=== PATIENT | male | born 2005 | race Two or more races ===

== ENCOUNTER 2024-11-24 01:47 | Inpatient (IN) | payer OTHER ==
[~2024-11-24] VITALS: Ht 160 cm; Wt 65.5 kg
[2024-11-24 03:37] LABS: BASOPHILS % (AUTO) 0.3 % (0.0-2.0); EOSINOPHILS % (AUTO) 0 % (1.0-6.0); HEMATOCRIT 38.1 % (41-53); LYMPHOCYTES # (AUTO) 1.3 K/uL (1.0-4.8); LYMPHOCYTES % (AUTO) 8.1 % (22.0-44.0); MEAN CORPUSCULAR HEMOGLOBIN 30.4 pg (26.0-34.0); MEAN CORPUSCULAR VOLUME 89 fL (80-100); MONOCYTES # (AUTO) 1.3 K/uL (0.1-1.0); MONOCYTES % (AUTO) 7.7 % (2.0-9.0); NEUTROPHILS # (AUTO) 13.9 K/uL (1.8-7.7); NEUTROPHILS % (AUTO) 83.9 % (40.0-70.0); PLATELET COUNT (AUTO) 195 K/uL (150-450); RED BLOOD CELL COUNT(AUTO) 4.27 MIL/uL (4.50-5.90); WHITE BLOOD COUNT (AUTO) 16.5 K/uL (4.5-11.0)
[2024-11-24 03:41] LABS: ANION GAP 9 mmol/L (8-16); CALCIUM, TOTAL 9.1 mg/dL (8.8-10.5); CARBON DIOXIDE 29 mmol/L (22-29); CHLORIDE 104 mmol/L (98-107); CREATININE 1.11 mg/dL (0.60-1.30); GLOMERULAR FILTR. RATE CALC > 60 mL/min (>60); GLUCOSE,RANDOM 87 mg/dL (70-110); POTASSIUM 3.9 mmol/L (3.5-5.1); SODIUM SERUM 142 mmol/L (136-145); UREA NITROGEN, BLOOD 16 mg/dL (7-18)
[2024-11-24 06:50] LABS: PH,URINE DRUG SCREEN 6.5 (5.0-8.0)
[2024-11-24 06:57] LABS: ALCOHOL, URINE DRUG SCREEN NEGATIVE (NEGATIVE); AMPHET/METH SCREEN,URINE POSITIVE (NEGATIVE); BARBITURATE SCREEN, URINE NEGATIVE (NEGATIVE); BENZODIAZEPINES SCREEN,URINE NEGATIVE (NEGATIVE); CANNABINOID SCREEN,URINE NEGATIVE (NEGATIVE); COCAINE SCREEN,URINE NEGATIVE (NEGATIVE); METHADONE SCREEN, URINE NEGATIVE (NEGATIVE); OPIATE SCREEN,URINE NEGATIVE (NEGATIVE); PHENCYCLIDINE SCREEN,URINE NEGATIVE (NEGATIVE)
[2024-11-24] MEDS ORDERED: ONDANSETRON HCL 4 MG/2 ML VIAL IVP PRN (07:15)
[2024-11-24] MEDS ORDERED: DIAZEPAM 2 MG TABLET PO PRN (07:15)
[2024-11-24] MEDS ORDERED: ACETAMINOPHEN 325 MG TABLET PO PRN (07:15)
[2024-11-24] MEDS: DOCUSATE SODIUM 100 MG CAPSULE PO SCH (08:13)
[2024-11-24] MEDS: HALOPERIDOL LACTATE 5 MG/ML VIAL IM ONE (10:49)
[2024-11-24] MEDS: LORazepam 2 MG/ML VIAL IM ONE (10:49)
[2024-11-24] MEDS: DiphenhydrAMINE HCL 50 MG/ML VIAL IM ONE (10:49)
[2024-11-24 12:29] VITALS: BP 105/65; PULSE 74; RESP 18; TEMP 97.7; O2SAT 99
[2024-11-24] MEDS ORDERED: LORazepam 2 MG TABLET PO PRN (15:45)
[2024-11-24] MEDS ORDERED: HALOPERIDOL 5 MG TABLET PO PRN (15:45)
[2024-11-24 21:00] VITALS: BP 107/70; PULSE 94; RESP 18; TEMP 98.7; O2SAT 100
[2024-11-24] MEDS: MAGNESIUM CITRATE [LEMON] 300 ML ORAL SOLUTION PO ONE (21:00)
[2024-11-24] MEDS ORDERED: DEXTROSE 5%-LACTATED RINGERS 1,000 ML IV ONE (21:00)
[2024-11-24] MEDS: DEXTROSE 5%-LACTATED RINGERS 1,000 ML IV ONE (21:00)
[2024-11-25 03:58] VITALS: BP 97/75; PULSE 83; RESP 18; TEMP 97.5; O2SAT 99
[2024-11-25 06:33] LABS: BASOPHILS % (AUTO) 0.8 % (0.0-2.0); EOSINOPHILS % (AUTO) 2.7 % (1.0-6.0); HEMATOCRIT 42.6 % (41-53); HEMOGLOBIN 14.3 g/dL (13.5-17.5); MEAN CORPUSCULAR HEMOGLOBIN 30.5 pg (26.0-34.0); MEAN CORPUSCULAR HGB CONC 33.5 G/dL (31.0-37.0); MEAN CORPUSCULAR VOLUME 91 fL (80-100); MONOCYTES # (AUTO) 0.7 K/uL (0.1-1.0); MONOCYTES % (AUTO) 8.5 % (2.0-9.0); NEUTROPHILS # (AUTO) 5.6 K/uL (1.8-7.7); PLATELET COUNT (AUTO) 204 K/uL (150-450); RED BLOOD CELL COUNT(AUTO) 4.68 MIL/uL (4.50-5.90); RED CELL DISTRIBUTION WIDTH 13.1 % (11.5-14.5); WHITE BLOOD COUNT (AUTO) 8.6 K/uL (4.5-11.0)
[2024-11-25 06:40] LABS: ANION GAP 13 mmol/L (8-16); CALCIUM, TOTAL 8.8 mg/dL (8.8-10.5); CARBON DIOXIDE 26 mmol/L (22-29); CHLORIDE 103 mmol/L (98-107); GLOMERULAR FILTR. RATE CALC > 60 mL/min (>60); GLUCOSE,RANDOM 55 mg/dL (70-110); POTASSIUM 3.7 mmol/L (3.5-5.1); SODIUM SERUM 142 mmol/L (136-145); UREA NITROGEN, BLOOD 14 mg/dL (7-18)
[2024-11-25] MEDS: DEXTROSE 5%-LACTATED RINGERS 1,000 ML IV SCH (07:00)
[2024-11-25] MEDS: HEPARIN SODIUM,PORCINE 5,000 UNITS/ML VIAL SQ SCH (08:00)
[2024-11-25 08:15] VITALS: BP 122/79; PULSE 108; RESP 18; TEMP 98.3; O2SAT 95
[2024-11-25 16:42] VITALS: BP 130/73; PULSE 108; RESP 18; TEMP 97.9; O2SAT 97
[2024-11-25 20:00] VITALS: BP 119/71; PULSE 96; RESP 18; TEMP 98.6; O2SAT 97
[2024-11-26 05:20] VITALS: BP 120/68; PULSE 72; RESP 18; TEMP 98.3; O2SAT 99
[2024-11-26 08:13] VITALS: BP 121/71; PULSE 84; RESP 18; TEMP 98.4; O2SAT 99
[2024-11-26] MEDS ORDERED: ACET-3385 PO (10:43)
[2024-11-26] MEDS: HydrOXYzine PAMOATE 50 MG CAPSULE PO ONE (12:33)
== END 2024-11-26 11:19 | DRG 394 ==
LOC: EMS 01:53 → EDH 07:01 → 6S 11:30
PROVIDERS: ADMIT Internal Medicine; ATTEND Internal Medicine
DX: T18.8XXA Foreign body in other parts of alimentary tract, initial encounter (principal); F15.23 Other stimulant dependence with withdrawal; R65.10 Systemic inflammatory response syndrome (SIRS) of non-infectious origin without acute organ dysfunction; R44.3 Hallucinations, unspecified; D72.829 Elevated white blood cell count, unspecified; W44.8XXA Other foreign body entering into or through a natural orifice, initial encounter; Y93.89 Activity, other specified; Y92.89 Other specified places as the place of occurrence of the external cause; Y99.8 Other external cause status
CPT/HCPCS: 74018; 80048; 80307; 83735; 85025; 96372; 99285; J1644; 36415-L1; 36415-TC

== ENCOUNTER 2024-12-28 16:57 | Inpatient (IN) | payer OTHER ==
[~2024-12-28] VITALS: Ht 167.6 cm; Wt 52.3 kg
[~2024-12-28 16:57] MED LIST: ACET-3385 PO
[2024-12-28 17:40] LABS: BASOPHILS % (AUTO) 0.4 % (0.0-2.0); EOSINOPHILS % (AUTO) 0.3 % (1.0-6.0); HEMATOCRIT 44.4 % (41-53); HEMOGLOBIN 14.7 g/dL (13.5-17.5); LYMPHOCYTES # (AUTO) 1.7 K/uL (1.0-4.8); LYMPHOCYTES % (AUTO) 16.6 % (22.0-44.0); MEAN CORPUSCULAR HEMOGLOBIN 30.2 pg (26.0-34.0); MEAN CORPUSCULAR HGB CONC 33.2 G/dL (31.0-37.0); MEAN CORPUSCULAR VOLUME 91 fL (80-100); MONOCYTES # (AUTO) 0.7 K/uL (0.1-1.0); MONOCYTES % (AUTO) 6.5 % (2.0-9.0); NEUTROPHILS # (AUTO) 7.7 K/uL (1.8-7.7); NEUTROPHILS % (AUTO) 76.2 % (40.0-70.0); PLATELET COUNT (AUTO) 256 K/uL (150-450); RED BLOOD CELL COUNT(AUTO) 4.88 MIL/uL (4.50-5.90); RED CELL DISTRIBUTION WIDTH 13.2 % (11.5-14.5); WHITE BLOOD COUNT (AUTO) 10.1 K/uL (4.5-11.0)
[2024-12-28 17:43] LABS: ANION GAP 9 mmol/L (8-16); CALCIUM, TOTAL 9.6 mg/dL (8.8-10.5); CARBON DIOXIDE 29 mmol/L (22-29); CHLORIDE 102 mmol/L (98-107); CREATININE 0.76 mg/dL (0.60-1.30); GLOMERULAR FILTR. RATE CALC > 60 mL/min (>60); GLUCOSE,RANDOM 99 mg/dL (70-110); SODIUM SERUM 140 mmol/L (136-145); UREA NITROGEN, BLOOD 11 mg/dL (7-18)
[2024-12-28] MEDS: LORazepam 2 MG TABLET PO ONE (17:45)
[2024-12-28 17:46] LABS: ERYTHROCYTE SEDIMENTATION RATE 3 MM/HR (0-15)
[2024-12-28 17:52] LABS: ALCOHOL, BLOOD (SERUM) < 3 mg/dL (0-10)
[2024-12-28 18:14] LABS: COVID AG,FIA SOURCE NASAL SWAB
[2024-12-28 18:30] LABS: SARS-COV2 (COVID) ANTIGEN,FIA Negative (Negative)
[2024-12-28] MEDS ORDERED: BISACODYL 10 MG RECTAL RECTAL SUPPOSITORY PR PRN (21:15)
[2024-12-28] MEDS ORDERED: ACETAMINOPHEN 325 MG TABLET PO PRN (21:15)
[2024-12-28] MEDS ORDERED: ONDANSETRON HCL 4 MG/2 ML VIAL IVP PRN (21:15)
[2024-12-28] MEDS ORDERED: MAGNESIUM HYDROXIDE SUSPENSION 30 ML UDCUP PO PRN (21:15)
[2024-12-28 22:03] VITALS: BP 118/68; PULSE 77; RESP 19; TEMP 98; O2SAT 99
[2024-12-28] MEDS: ZOLPIDEM TARTRATE 5 MG TABLET PO PRN (22:14)
[2024-12-29] MEDS: HEPARIN SODIUM,PORCINE 5,000 UNITS/ML VIAL SQ SCH (00:10)
[2024-12-29 04:57] VITALS: BP 117/57; PULSE 61; RESP 18; TEMP 98.6; O2SAT 98
[2024-12-29 08:42] VITALS: BP 122/69; PULSE 85; RESP 20; TEMP 98.2; O2SAT 99
[2024-12-29] MEDS: DOCUSATE SODIUM 100 MG CAPSULE PO SCH (08:45)
[2024-12-29] MEDS: PANTOPRAZOLE SODIUM 40 MG DR TABLET PO SCH (08:45)
[2024-12-29] MEDS: ARIPiprazole 5 MG TABLET PO SCH (13:23)
[2024-12-29 19:09] LABS: ALCOHOL, URINE DRUG SCREEN NEGATIVE (NEGATIVE); AMPHET/METH SCREEN,URINE NEGATIVE (NEGATIVE); BARBITURATE SCREEN, URINE NEGATIVE (NEGATIVE); BENZODIAZEPINES SCREEN,URINE NEGATIVE (NEGATIVE); CANNABINOID SCREEN,URINE NEGATIVE (NEGATIVE); COCAINE SCREEN,URINE NEGATIVE (NEGATIVE); METHADONE SCREEN, URINE NEGATIVE (NEGATIVE); OPIATE SCREEN,URINE NEGATIVE (NEGATIVE); PHENCYCLIDINE SCREEN,URINE NEGATIVE (NEGATIVE)
[2024-12-29 19:38] VITALS: BP 116/73; PULSE 78; RESP 18; TEMP 98.6; O2SAT 96
[2024-12-30 05:48] VITALS: BP 111/74; PULSE 77; RESP 18; TEMP 97.9; O2SAT 97
[2024-12-30 06:06] LABS: HEPATITIS C AB (EIA) Non Reactive (Non Reactive)
[2024-12-30 08:00] VITALS: BP 116/76; PULSE 76; RESP 18; TEMP 97.7; O2SAT 99
[2024-12-30 08:36] VITALS: BP 116/76; TEMP 97.7; O2SAT 99
[2024-12-30] MEDS: HydrOXYzine HCL 50 MG TABLET PO ONE (17:11)
[2024-12-30 21:05] VITALS: BP 117/75; PULSE 93; RESP 20; TEMP 98.1; O2SAT 96
[2024-12-31 05:40] VITALS: BP 108/56; PULSE 65; RESP 18; TEMP 97.9; O2SAT 98
[2024-12-31 08:46] VITALS: BP 116/78; PULSE 92; RESP 19; TEMP 97.9; O2SAT 97
[2024-12-31] MEDS ORDERED: ARIP5TAB37 PO (16:29)
[2024-12-31 20:51] VITALS: BP 130/88; PULSE 81; RESP 18; TEMP 97.7; O2SAT 99
== END 2024-12-31 21:00 | DRG 605 ==
LOC: EMS 16:57 → EDH 21:12 → 6S 21:57
PROVIDERS: ADMIT Internal Medicine; ATTEND Internal Medicine
PROC: GZ56ZZZ Individual Psychotherapy, Supportive (ICD-10-PCS; principal; 2024-12-29)
DX: S60.221A Contusion of right hand, initial encounter (principal); F20.9 Schizophrenia, unspecified; I10 Essential (primary) hypertension; F41.9 Anxiety disorder, unspecified; X58.XXXA Exposure to other specified factors, initial encounter; Y93.89 Activity, other specified; Y92.89 Other specified places as the place of occurrence of the external cause; Y99.8 Other external cause status
CPT/HCPCS: 80048; 80307; 85025; 85651; 86803; 87340; 99285; G0480; J1644